=== PATIENT | female | born 1930 | race Caucasian/White ===

== ENCOUNTER 2018-04-23 07:00 | Inpatient (IN) | payer OTHER, MEDICARE ==
[~2018-04-23] VITALS: Ht 154.9 cm; Wt 83.5 kg
[~2018-04-23 07:00] MED LIST: ALENDRONATE SOD70 M2 PO; AUGMENTIN 500-1 EACH PO; CLONIDINE1 EAC1 TOP; COLACE100 M1 PO; DILAUDID2 M1 PO; DILTIAZEM 12HR90 MG PO; DULOXETINE HCL30 MG PO; ELIQUIS2.5 M1 PO; ELIQUIS5 M1 PO; HYDROMORPHONE HC2 M1 PO; LASIX40 M1 PO; LIPITOR20 M2 PO; METOLAZONE2.5 M1 PO; MIRALAX17 G1 PO; PRILOSEC OTC20 M1 PO; PRINIVIL20 M1 PO; TRAMADOL HCL50 M1 PO; VITAMIN D1000 UNIT PO; ZOFRAN ODT4 M1 SL
[2018-05-18] MEDS ORDERED: ASPIRIN81 M4 PO (09:15)
--- NOTE | 2018-05-21 16:45 | Admission Core Measures ---
Acute Coronary Syndrome (CM) ACS Core Measures Acute Coronary Syndrome Diagnosis No Congestive Heart Failure (NEW) CHF Core Measures Congestive Heart Failure Diagnosis No Cerebrovascular Accident CVA Core Measures CVA/TIA Diagnosis No Venous Thromboembolism VTE Core Brian (View Protocol) VTE Risk Factors Surgery No Mechanical VTE Prophylaxis d/t N/A MechProphylax Ordered No VTE Pharm Prophylaxis d/t NA PharmProphylax ordered Problem List As ranked by this Provider includes Assessment & Plan 1. Unilateral primary osteoarthritis, right knee HOME MEDS Home Med List Alendronate Sodium 70 MG TABLET 1 TAB PO QW OSTEOPOROSIS (Reported) Aspirin (Aspirin*) 81 MG TAB.CHEW 1 TAB PO DAILY CARDIAC (Reported) Atorvastatin Calcium (Lipitor) 20 MG TABLET 1 TAB PO DAILY CHOLESTEROL ( Reported) Diltiazem HCl (Diltiazem 12HR ER) 90 MG CAP.ER.12H 2 CAP PO BID HEART/BP ( Reported) Docusate Sodium (Colace) 100 MG CAPSULE 1 CAP PO BID constipation Duloxetine HCl 30 MG CAPSULE.DR 1 TAB PO DAILY MENTAL HEALTH (Reported) Furosemide (Lasix) 40 MG TABLET 1 TAB PO DAILY DIURETIC (Reported) Omeprazole Magnesium (Prilosec Otc) 20 MG TABLET.DR 1 TAB PO DAILY GI ( Reported)
[2018-05-21] MEDS ORDERED: DILAUDID2 M1 PO (16:50)
[2018-05-21] MEDS ORDERED: ELIQUIS2.5 M1 PO (16:50)
[2018-05-21] MEDS ORDERED: MIRALAX17 G1 PO (16:50)
[2018-05-21] MEDS ORDERED: PRILOSEC OTC20 M1 PO (16:50)
[2018-05-21] MEDS ORDERED: COLACE100 M1 PO (16:50)
--- NOTE | 2018-05-21 16:53 | Patient Discharge Instructions ---
Discharge Instructions General Discharge Information You were seen/treated for: Right knee pain related to unilateral primary osteoarthritis You had these procedures: Right total knee replacement Watch for these problems: Increasing pain despite the use of pain medication Increasing redness, warmth or swelling Drainage of any type from incision Inability to bear weight on operative leg Persistent nausea and vomiting Fever greater than 101.5 degrees Call Surgeon to remove: Frank Do not soak the wound: Yes Daily wet to dry dressings: No No bath, but you may shower: Yes Other wound care: Please keep wound clean and dry. No ointments or lotions of any type on or near incision at any time. No exceptions. Your dressing will be changed by your nurse on the second day after your surgery. Daily dry dressing changes are recommended each day thereafter. Do not soak your wound in a bath or pool at any time until otherwise indicated by your surgeon. You may shower, please dry wound immediately after shower with a clean towel. Special Instructions: Constipation: Pain medication can cause constipation. Your surgeon has recommended that you take Colace and miralax each day. You may discontinue this medication if you develop loose stool or diarrhea. If you wish to continue this medication, it is available over the counter. If you are unable to move your bowels after several days, if you are unable to pass gas and are developing bloating, nausea, or vomiting as a result, please contact your doctor. Diet Continue normal diet: Yes Recommended Diet: Regular Activity Full Activity/No Limits: No Activity Self Limited: Yes Acute Coronary Syndrome Inclusion Criteria At DC or during hospital stay patient has or had the following: ACS DIAGNOSIS No Discharge Core Measures Meds if any: Prescribed or Continued at Discharge Meds if any: NOT Prescribed or Continued at Discharge Congestive Heart Failure Inclusion Criteria At DC or during hospital stay patient has or had the following: CHF DIAGNOSIS No Discharge Core Measures Meds if any: Prescribed or Continued at Discharge Meds if any: NOT Prescribed or Continued at Discharge Cerebrovascular accident Inclusion Criteria At DC or during hospital stay patient has or had the following: CVA/TIA Diagnosis No Discharge Core Measures Meds if any: Prescribed or Continued at Discharge Meds if any: NOT Prescribed or Continued at Discharge Venous thromboembolism Inclusion Criteria VTE Diagnosis No VTE Type NONE VTE Confirmed by (Test) NONE Discharge Core Measures - Per Current guidelines, there needs to be overlap - treatment for the first 5 days of Warfarin therapy. - If discharged on Warfarin prior to 5 days of - overlap therapy, the patient will need to be - assessed for post discharge needs including - *Post discharge parental anticoagulation - *Warfarin and/or parental anticoagulation education - *Follow up date to check INR post discharge At least 5 days overlap therapy as Inpatient No Meds if any: Prescribed or Continued at Discharge Note: Overlap Therapy is Warfarin and Anticoagulant Meds if any: NOT Prescribed or Continued at Discharge
--- NOTE | 2018-05-21 16:55 | Surgical Discharge Summary ---
Visit Information Visit Dates Admission Date: 05/21/18 Discharge Date: 05/25/18 History of Present Illness Chief Complaint: Right knee pain related to unilateral primary osteoarthritis Medical History Neurological: dizziness EENT: NONE, allergies Cardiovascular: AFIB, hypertension, hyperlipidemia Respiratory: bronchitis, pneumonia Gastrointestinal: NONE Hepatic: NONE Renal: NONE Musculoskeletal: fracture, osteoporosis Psychiatric: NONE Endocrine: osteoporosis Blood Disorders: NONE Cancer(s): NONE SCHOOL PSYCHOMETRIST/Reproductive: NONE History of MRSA: No History of VRE: No History of CDIFF: No Surgical History Pertinent Surgical History: appendectomy, hip replacement, hysterectomy Psychosocial History Who Do You Live With? Spouse What is Your Primary Language? Mohawk Review of Systems: See H&P Physical Exam: General: Alert, awake, distress Extremities: Right knee with juvencio in place no surrounding edema, erythema, or ecchymosis, generalized edema of upper and lower extremities, no cyanosis or clubbing appreciated, neurovascular intact Hospital Course Course Attending Physician: Keven Ngo MD Primary Care Physician: Kishan Rivera MD Hospital Course: Patient was admitted to the hospital for an elective total joint replacement. The procedure was tolerated well and patient was transferred to a general surgical floor. Diet was advanced and tolerated. The patient was evaluated and treated by physical therapy. At the time of hospital discharge, the vital signs were stable, neurovascular status was intact, and pain was controlled with the use of oral pain medications. Complications: none Allergies: Coded Allergies: codeine (From TYLENOL-CODEINE #3) (UNKNOWN 05/18/18) PER PRE-OP ORDER SHEET FROM [facility]. -CG 04/20/18 oxycodone (UNKNOWN 05/18/18) PER PRE-OP ORDER SHEET FROM [facility]. -CG 05/18/18 wool (UNKNOWN 05/18/18) Significant Procedures: Right Total Knee Arthroplasty Disposition Summary Disposition Principal Diagnosis: Unilateral primary osteoarthritis right knee Additional Diagnosis: None Discharge Disposition: home health services Discharge Instructions General Discharge Information Code Status: Full Code Patient's Diet: Regular, advance as tolerated Patient's Activity: WBAT Follow-Up Instructions/Appts: Follow up with Dr. Ngo in 6 weeks from date of surgery. Please call office to arrange &/or confirm this appointment. Medications at Discharge Discharge Medications: Stop taking the following medications: Aspirin (Aspirin*) 81 MG TAB.CHEW ORAL DAILY Continue taking these medications: Atorvastatin Calcium (Lipitor) 20 MG TABLET 1 Tablet ORAL DAILY Comments: Last Taken: 05/24/18 Time: 4:00 PM Diltiazem HCl (Diltiazem 12HR ER) 90 MG CAP.ER.12H 2 Capsule ORAL TWICE DAILY Comments: Last Taken: 05/25/18 Time: 8:30 AM Furosemide (Lasix) 40 MG TABLET 1 Tablet ORAL DAILY Comments: NOT GIVEN IN HOSPITAL Alendronate Sodium (Alendronate Sodium) 70 MG TABLET 1 Tablet ORAL Once a Week Instructions: in the morning, at least 30 minutes before the first food, beverage, MONDAY Comments: NOT GIVEN IN HOSPITAL Duloxetine HCl (Duloxetine HCl) 30 MG CAPSULE.DR 1 Tablet ORAL DAILY Comments: Last Taken: 05/25/18 Time: 8:30 AM Docusate Sodium (Colace) 100 MG CAPSULE 1 Capsule ORAL TWICE DAILY Qty = 14 Comments: Last Taken: 05/25/18 Time: 8:30 AM This prescription has been renewed Omeprazole Magnesium (Prilosec Otc) 20 MG TABLET.DR 1 Tablet ORAL DAILY Qty = 30 Comments: Last Taken: 05/25/18 Time: 5:30 AM This prescription has been renewed Start taking the following new medications: Acetaminophen (Tylenol) 325 MG TABLET 650 Milligram ORAL EVERY 4 HOURS NEEDED as needed for pain control Days = 10 No Refills Instructions: ok to stagger with tramadol Tramadol HCl (Tramadol HCl) 50 MG TABLET 50 Milligram ORAL Every 6-8 Hours as Needed as needed for pain control Qty = 30 No Refills Instructions: ok to stagger with tylenol Apixaban (Eliquis) 2.5 MG TABLET 1 Tablet ORAL TWICE DAILY Qty = 84 No Refills Comments: Last Taken: 05/25/18 Time: 8:30 AM Polyethylene Glycol 3350 (Miralax) 17 GRAM POWD.PACK 1 Packet ORAL DAILY Qty = 7 No Refills Instructions: dissolve in water, DISCONTINUE USE IF YOU DEVELOP LOOSE STOOL OR DIARRHEA Comments: Last Taken: 05/25/18 Time: 8:30 AM Copies To: Keven Ngo MD
--- NOTE | 2018-05-21 17:12 | PN- Orthopedic ---
Subjective Subjective: 88 y/o female s/p right TKA, comfortable in PACU with vague complaints of chest pressure, She has a history of GERD and did not take her normal morning meds. Sensory is returning to both of her legs. She denies nausea, dizziness or chest pain. No prior history of cardiac events in the past. She has a history of PE in 2016. Last echo was normal. Objective Vital Signs and I&Os VSS afebrile chest- CTA symmetric heart- RRR without MRG Abd -rounded without distention, NT right knee- melissa wraps in place, dressings dry, calves soft beginning to feels sensation but no motor function yest feet warm with good perfusion Assessment/Plan Assessment/Plan 88 y/o female postop right TKR with PMHx sig for AFIB,HTN, GERD, PE with mild chest pressure. EKG showed mild T-wave changes -nonspecific as compared to prior preop EKG anesthesia administered famotidine and will continue to monitor for any further changes prior to admission to the floor. Prior history of PE -ALPS and eduardo OOB-chair -PT WBAT D/C planning for 2 nights Core Measures Venous Thromboembolism VTE Risk Factors Surgery No Mechanical VTE Prophylaxis d/t N/A MechProphylax Ordered No VTE Pharm Prophylaxis d/t NA PharmProphylax ordered
--- NOTE | 2018-05-21 17:47 | Operative Report ---
Operative/Inv Procedure Report Surgery Date: 05/21/18 Name of Procedure: Right total knee replacement Pre-Operative Diagnosis: Primary right knee DJD Post-Operative Diagnosis: Same Estimated Blood Loss: 50ml to 100ml Surgeon/Banquet Prep Cook: Jeni SINGH,Keven Vaughn Anesthesia: block Operative/Procedure Note Note: Description of Procedure: The patient was taken to the operating room and positively identified. After induction of spinal anesthesia and administration of appropriate pre-operative antibiotics, the patient was positioned supine on the operating room table and all bony prominences were well padded. A well-padded pneumatic tourniquet was placed on the right upper thigh. After performing a surgical timeout, the right lower extremity was prepped and draped in the usual sterile fashion. After exsanguination with Esmarch the tourniquet was inflated to 250mm of mercury. A standard medial parapatellar approach was made to the knee. This was carried down through skin and subcutaneous tissue to the level of the fascia. Meticulous hemostasis was maintained with Bovie electrocautery. The extensor mechanism and patellar retinaculum were opened sharply and the patella was everted. The infrapatellar fat was resected in order to improve exposure. Osteophytes were trimmed from the patella and femoral condyles and the patella was re-everted and tucked laterally. A medial release was performed and the cruciate ligaments were resected. The tibia was then subluxed anteriorly. Utilizing the appropriate extra-medullary guide, the proximal tibia was trimmed perpendicular to the long axis of the tibial shaft. Attention was then turned to the femur. After opening the medullary canal, the distal femoral cut was made in 6 degrees of valgus utilizing the appropriate intra-medullary guide. The extension gap was checked and found to be appropriate. The femur was then sized and the remainder of the femoral cuts were made with a size #4 4-in-1 femoral cutting guide. The flexion gap was checked and found to be symmetric and appropriate. The knee was then trialed with a size #4 femoral component, a size #4 tibial component and a size 16 mm polyethylene insert. The patella was trimmed to accept an A 35 patella. This yielded excellent range of motion, stability and patellar tracking. All trial components were removed and the knee was copiously irrigated with sterile saline. All components were cemented into place with Elroy Simplex cement. All the components were of the Elroy Triathlon knee system of the above stated sizes. The knee was again irrigated after cementation. The extensor mechanism and patellar retinaculum were repaired using interrupted #1 vicryl suture. The skin was re-approximated with 2-0 vicryl and closed with juvencio. A sterile dressing was applied, the tourniquet was deflated, the patient was awakened and taken to the recovery room in satisfactory condition.
[2018-05-21 20:15] VITALS: BP 142/78
[2018-05-21 22:43] VITALS: BP 144/78
[2018-05-22] VITALS (7 sets, daily range): BP systolic 100–141; BP diastolic 50–67
--- NOTE | 2018-05-22 08:00 | PN- Orthopedic ---
Subjective Subjective: Patient doing well, no complaints, pain is controlled, voiding, tolerating diet, no fever no flulike illness, no acute events overnight, was nauseous, now resolved. No chest pain no shortness of breath Objective Vital Signs and I&Os Vital Signs Date Time Temp Pulse Resp B/P B/P Pulse O2 O2 Flow FiO2 Mean Ox Delivery Rate 05/22 0552 98.0 55 20 114/60 94 Room Air 05/22 0200 97.6 79 20 107/60 94 Room Air 05/22 0010 97.5 80 20 141/67 95 Room Air 05/21 2243 97.4 76 20 144/78 97 Room Air 05/21 2033 95 Room Air 05/21 2015 97.6 75 20 142/78 95 Room Air Intake & Output 05/22 0805/22 0000 05/21 1600 05/21 0805/21 0000 05/20 1600 Intake Total 840 390 Output Total 400 Balance 840 -10 Intake, IV 600 150 Intake, Oral 240 240 Output, Urine 400 Patient 184 lb Weight Weight Reported by Patient Measurement Method Physical Exam: Well-developed well-nourished no apparent distress. HEENT: Atraumatic, extraocular motion intact Neck: Supple, no lymphadenopathy Respiratory: No respiratory distress Extremities: No edema RIGHT lower extremity dressing in place, dressing clean dry and intact. Mild joint effusion Range of motion is 0-45. Compression wrap in place. ALPS in place Neurovascularly intact distally Bilateral calves are supple, nontender. Neuro: Alert and oriented x3 Psych: Mood affect normal, normal memory normal judgment. Skin: Warm and dry, no rash on exposed skin Current Medications: Current Medications Sig/Kirstin Start time Last Medication Dose Route Stop Time Status Admin Acetaminophen 1,000 MG Q6H 05/22 0400 AC 05/22 IV 05/22 1601 0409 Acetaminophen 1,000 MG Q6 05/21 1800 DC 05/21 IV 05/22 1201 2158 Acetaminophen 0 .STK-MED ONE 05/21 1349 DC PO Acetaminophen 975 MG ONCE 05/21 0000 DC PO 05/21 2359 Apixaban 2.5 MG BID 05/22 0900 AC PO Atorvastatin Calcium 20 MG 1700 05/21 1700 AC 05/21 PO 2158 Cefazolin Sodium 2 GM IQ8 05/22 0000 AC 05/21 N/A 1 UNIT IV 05/22 0829 2335 Cefazolin Sodium 2,000 MG ONCE 05/21 0000 DC IV 05/21 2359 Dextrose/Sodium 1,000 ML .[id number] 05/21 2030 DC 05/22 Chloride IV 0412 Diltiazem HCl 180 MG BID 05/21 2100 AC 05/21 PO 2159 Docusate Sodium 100 MG BID 05/21 2100 AC 05/21 PO 2159 Duloxetine HCl 30 MG DAILY 05/22 0900 AC PO Famotidine 0 .STK-MED ONE 05/21 1640 DC IV Hydromorphone HCl 2 MG Q4P PRN 05/21 2030 AC PO Hydromorphone HCl 4 MG Q4P PRN 05/21 2030 AC 05/21 PO 2159 Midazolam HCl 0 .STK-MED ONE 05/21 1416 DC .ROUTE Morphine Sulfate 2 MG Q2P PRN 05/21 2030 AC IV Omeprazole 40 MG DAILY AC 05/22 0700 AC 05/22 PO 0521 Ondansetron HCl 4 MG Q6P PRN 05/21 2030 AC IV Ondansetron HCl 0 .STK-MED ONE 05/21 1723 DC .ROUTE Oxycodone HCl 0 .STK-MED ONE 05/21 1350 DC PO Oxycodone HCl 10 MG ONCE 05/21 0000 DC PO 05/21 2359 Polyethylene Glycol 17 GM DAILY 05/22 09 AC PO Promethazine HCl 12.5 MG Q6P PRN 05/21 2030 AC IV 05/28 1644 Assessment/Plan Assessment/Plan Postop day #1 status post right total knee arthroplasty Perioperative antibiotics. Pain medication as needed. Out of bed Physical therapy, weightbearing as tolerated DC IV fluids Regular diet Follow a.m. labs Eliquis for DVT prophylaxis (hx paf and PE) ALPS for DVT prophylaxis Regular home meds Dressing change postop day 2 Anticipate discharge home in 1-2 days with VNA services Core Measures Venous Thromboembolism VTE Risk Factors Surgery No Mechanical VTE Prophylaxis d/t N/A MechProphylax Ordered No VTE Pharm Prophylaxis d/t NA PharmProphylax ordered
[2018-05-22 09:18] LABS: ABSOLUTE BASOPHIL COUNT 0 /CUMM (0.0-0.2); ABSOLUTE EOSINOPHIL COUNT 0 /CUMM (0.0-0.7); ABSOLUTE GRANULOCYTE CT 7.7 /CUMM (1.4-6.5); ABSOLUTE MONOCYTE COUNT 0.5 /CUMM (0.10-0.60); BASOPHIL % 0.1 % (0.0-2.0); EOSINOPHIL % 0.1 % (0-5); GRANULOCYTE % 83.2 % (42.2-75.2); HEMATOCRIT 30.1 % (37-47); MEAN CORPUSCULAR HGB 32.7 PG (27.0-31.0); MEAN CORPUSCULAR HGB CONC 34.7 G/DL (33.0-37.0); MEAN CORPUSCULAR VOLUME 94.3 FL (81.0-99.0); MEAN PLATELET VOLUME 7.8 FL (7.4-10.4); PLATELET COUNT 195 /CUMM (130-400); RBC DISTRIBUTION WIDTH 12.1 % (11.5-14.5); WHITE BLOOD CELL COUNT 9.3 /CUMM (4.8-10.8)
--- NOTE | 2018-05-23 06:31 | PN- Orthopedic ---
Subjective Subjective: POD#2 S/P LEFT TKA NAUSEA AND SOME EMESIS OVERNIGHT CURRENTLY DENEIS CP, SOB, OR NAUSEA NOW ALSO C/O EPIGASTRIC FULLNESS BUT NO ABDOMINAL PAIN Objective Vital Signs and I&Os Vital Signs Date Time Temp Pulse Resp B/P B/P Pulse O2 O2 Flow FiO2 Mean Ox Delivery Rate 05/224 97.5 62 18 100/50 95 Room Air 05/22 2049 62 100/50 05/22 1839 96.4 57 18 107/50 93 Room Air 05/22 1505 64 20 122/64 97 Room Air 05/22 1005 98.0 58 20 106/58 97 Room Air 05/22 0849 110/50 Intake & Output 05/23 0000 05/22 1600 05/22 0000 05/21 1600 Intake Total 900 840 390 Output Total 200 530 400 Balance -200 370 840 -10 Intake, IV 600 600 150 Intake, Oral 300 240 240 Output, 80 Emesis Output, Urine 200 450 400 Patient 184 lb Weight Weight Reported by Patient Measurement Method Physical Exam: CV: RRR LUNGS: CLEAR ABD: SOFT, +BS NT/ND EXT: DRSG CHANGE, WOUND C/D/I NO CALF TENDERNESS BILAT DISTAL CMS INTACT Assessment/Plan Assessment/Plan ORTHO STABLE NAUSEA OVERNIGHT NONE NOW PLAN CBC/BEP ORDERED CONT IVF OOB WITH PT/STAIRS CONT CURRENT MEDICAL MANAGEMENT POSSIBLE ABD IMAGING IF ABDOMINAL COMPLAINTS WORSEN HOME D/C PLANNING Core Measures Venous Thromboembolism VTE Risk Factors Surgery No Mechanical VTE Prophylaxis d/t N/A MechProphylax Ordered No VTE Pharm Prophylaxis d/t NA PharmProphylax ordered
[2018-05-23 06:33] VITALS: BP 132/60
[2018-05-23 07:45] LABS: ABSOLUTE BASOPHIL COUNT 0 /CUMM (0.0-0.2); ABSOLUTE EOSINOPHIL COUNT 0 /CUMM (0.0-0.7); ABSOLUTE GRANULOCYTE CT 6.9 /CUMM (1.4-6.5); ABSOLUTE LYMPH COUNT 0.8 /CUMM (1.2-3.4); ABSOLUTE MONOCYTE COUNT 0.6 /CUMM (0.10-0.60); BASOPHIL % 0.2 % (0.0-2.0); EOSINOPHIL % 0.4 % (0-5); GRANULOCYTE % 82.4 % (42.2-75.2); HEMATOCRIT 30.5 % (37-47); MEAN CORPUSCULAR HGB 32.9 PG (27.0-31.0); MEAN CORPUSCULAR HGB CONC 34.4 G/DL (33.0-37.0); MEAN CORPUSCULAR VOLUME 95.7 FL (81.0-99.0); MEAN PLATELET VOLUME 7.3 FL (7.4-10.4); PLATELET COUNT 187 /CUMM (130-400); RBC DISTRIBUTION WIDTH 12.7 % (11.5-14.5); RED BLOOD CELL CT 3.19 /CUMM (4.20-5.40); WHITE BLOOD CELL COUNT 8.3 /CUMM (4.8-10.8)
[2018-05-23 14:15] VITALS: BP 122/58
[2018-05-23 21:31] VITALS: BP 120/50
[2018-05-24 06:39] VITALS: BP 100/52
--- NOTE | 2018-05-24 07:30 | PN- Orthopedic ---
Subjective Subjective: Patient doing fairly well this morning. She works with [employer] and has been ambulating with a walker. Reports fair pain control, having quite a bit of pain with movement. She reports no appetite but feels like she is keeping up with her fluid intake. She denies any other issues or complaints. Objective Vital Signs and I&Os Vital Signs Date Time Temp Pulse Resp B/P B/P Pulse O2 O2 Flow FiO2 Mean Ox Delivery Rate 05/24 0639 97.4 80 18 100/52 88 05/23 2254 78 120/50 05/23 2131 97.9 76 18 120/50 94 Room Air 05/23 1415 97.4 81 18 122/58 94 Room Air 05/23 0806 120/50 05/23 0800 97 Room Air Intake & Output 05/24 0000 05/23 1600 05/23 0000 05/22 1600 Intake Total 240 1400 1080 900 Output Total 800 200 530 Balance 005 012 4855 -200 370 Intake, IV 600 600 600 Intake, Oral 240 800 480 300 Number 0 Bowel Movements Output, 80 Emesis Output, Urine 800 200 450 Physical Exam: General: Alert, awake, distress Extremities: Right knee with juvencio in place no surrounding edema, erythema, or ecchymosis, generalized edema of upper and lower extremities, no cyanosis or clubbing appreciated, neurovascular intact Current Medications: Current Medications Sig/Kirstin Start time Last Medication Dose Route Stop Time Status Admin Apixaban 2.5 MG BID 05/22 09 AC 05/23 PO 2254 Atorvastatin Calcium 20 MG 1700 05/21 1700 05/23 PO 1802 Dextrose/Sodium 1,000 ML Q13H 05/22 1945 05/23 Chloride IV 2254 Diltiazem HCl 180 MG BID 05/21 2100 AC 05/23 PO 2254 Docusate Sodium 100 MG BID 05/21 2100 05/23 PO 2254 Duloxetine HCl 30 MG DAILY 05/22 0905/23 PO 0807 Hydromorphone HCl 2 MG Q4P PRN 05/21 2030 AC 05/23 PO 1111 Hydromorphone HCl 4 MG Q4P PRN 05/21 2030 AC 05/22 PO 1419 Morphine Sulfate 2 MG Q2P PRN 05/21 2030 AC IV Omeprazole 40 MG DAILY AC 05/22 0705/24 PO 0601 Ondansetron HCl 4 MG Q6P PRN 05/21 2030 AC 05/22 IV 1419 Polyethylene Glycol 17 GM DAILY 05/22 0900 AC PO Promethazine HCl 12.5 MG Q6P PRN 05/21 2030 AC 05/22 IV 05/28 1644 1545 Results Last 48 Hours of Labs: Laboratory Tests 05/23 05/22 0718 0755 Chemistry Sodium (137 - 145 mmol/L) 135 L 137 Potassium (3.5 - 5.1 mmol/L) 3.7 3.9 Chloride (98 - 107 mmol/L) 106 107 Carbon Dioxide (22 - 30 mmol/L) 25 23 Anion Gap (5 - 16) 4 L 7 BUN (7 - 17 mg/dL) 11 14 Creatinine (0.5 - 1.0 mg/dL) 0.5 0.7 Estimated GFR (>60 ml/min) > 60 > 60 BUN/Creatinine Ratio (7 - 25 %) 22.0 20.0 Hematology CBC w Diff NO MAN DIFF REQ NO MAN DIFF REQ WBC (4.8 - 10.8 /CUMM) 8.3 9.3 RBC (4.20 - 5.40 /CUMM) 3.19 L 3.20 L Hgb (12.0 - 16.0 G/DL) 10.5 L 10.4 L Hct (37 - 47 %) 30.5 L 30.1 L MCV (81.0 - 99.0 FL) 95.7 94.3 MCH (27.0 - 31.0 PG) 32.9 H 32.7 H MCHC (33.0 - 37.0 G/DL) 34.4 34.7 RDW (11.5 - 14.5 %) 12.7 12.1 Plt Count (130 - 400 /CUMM) 187 195 MPV (7.4 - 10.4 FL) 7.3 L 7.8 Gran % (42.2 - 75.2 %) 82.4 H 83.2 H Lymphocytes % (20.5 - 51.1 %) 9.4 L 10.7 L Monocytes % (1.7 - 9.3 %) 7.6 5.9 Eosinophils % (0 - 5 %) 0.4 0.1 Basophils % (0.0 - 2.0 %) 0.2 0.1 Absolute Granulocytes (1.4 - 6.5 /CUMM) 6.9 H 7.7 H Absolute Lymphocytes (1.2 - 3.4 /CUMM) 0.8 L 1.0 L Absolute Monocytes (0.10 - 0.60 /CUMM) 0.6 0.5 Absolute Eosinophils (0.0 - 0.7 /CUMM) 0 0 Absolute Basophils (0.0 - 0.2 /CUMM) 0 0 Assessment/Plan Assessment/Plan Postop day #3 status post right total knee arthroplasty Perioperative antibiotics completed. Pain medication as needed. Out of bed Physical therapy, weightbearing as tolerated Regular diet Eliquis for DVT prophylaxis (hx paf and PE) ALPS for DVT prophylaxis Regular home meds Anticipate discharge home either today or tomorrow with VNA services Problem List: 1. Unilateral primary osteoarthritis, right knee 2. Status post total hip replacement, right Core Measures Venous Thromboembolism VTE Risk Factors Surgery No Mechanical VTE Prophylaxis d/t N/A MechProphylax Ordered No VTE Pharm Prophylaxis d/t NA PharmProphylax ordered
[2018-05-24 08:30] VITALS: BP 110/58
[2018-05-24 14:40] VITALS: BP 123/53
[2018-05-24 21:19] VITALS: BP 136/71
[2018-05-25 05:51] VITALS: BP 118/52
--- NOTE | 2018-05-25 07:46 | PN- General Surgery ---
See Addendum Subjective Subjective: Complaints from the pateint at the present time include a sensation that she is falling from her bed, as well as the realization that she has awoken speaking to herself. She is expressing concern that it is related to her pain regimen. She denies signficant pain at the present moment and is requesting to forego future pain medication administration. She denies chest pain, shortness of breath and difficulty breathing. She had postop nausea and vomitting but states that over the past one day the sensation has resolved, she tolerated solid food for dinner last night. She has not had any difficulty voiding. She has ambulated with PT and with nursing but fatigues easily. She is eager for discharge to home versus short term rehabilition, as of right now she has not cleared PT for home dc. Objective Vital Signs and I&Os Vital Signs Date Time Temp Pulse Resp B/P B/P Pulse O2 O2 Flow FiO2 Mean Ox Delivery Rate 05/25 0551 98.4 74 18 118/52 93 05/25 0000 Room Air 05/24 2119 98.4 84 18 136/71 97 Room Air 05/24 2020 84 136/71 05/24 1440 98.0 72 18 123/53 95 Room Air 05/24 0851 74 110/58 05/24 0830 74 18 110/58 96 Room Air Room Air 05/24 0800 96 Room Air 05/24 0750 18 92 Room Air Room Air Intake & Output 05/25 0800 05/25 0000 05/24 1600 05/24 0800 05/24 0000 05/23 1600 Intake Total 490 970 438 242 9342 Output Total 500 300 800 Balance -10 670 800 240 600 Intake, IV 10 10 600 Intake, Oral 480 960 800 240 800 Number 0 0 Bowel Movements Output, Urine 500 300 800 Physical Exam: General: Alert and oriented x3, no acute distress Cardiac: RRR, s1s2 Pulm: C T A bilaterally, non-labored respiratory effort Abd: Soft, non-tender, non-distended Extremities: Moves all extremities, distal sensation grossly intact. Skin warm and well perfused. Knee in full extension, juvencio intact, skin edges well approximated with no surrounding erythema and no drainage. Bilateral calves soft and non-tender. Assessment/Plan Assessment/Plan This is an 88 year old female, POD 4, s/p R TKA. -DC dilaudid, add po tylenol as well as po tramadol -OOB, WBAT -Appreciate PT recommendations re: discharge planning home vs str (patient prefers home) -Continue diet as tolerated, po intake encouraged -Continue eliquis for dvt ppx Will discuss plan of care with Dr. Ngo and case management Core Measures Venous Thromboembolism VTE Risk Factors Surgery No Mechanical VTE Prophylaxis d/t N/A MechProphylax Ordered No VTE Pharm Prophylaxis d/t NA PharmProphylax ordered
--- NOTE | 2018-05-25 07:47 | PN- Orthopedic ---
Surgical Brief Attending Note Brief Attending Note: see general surgery progress note dated today for complete evaluation/assessment and plan.
[2018-05-25 08:29] VITALS: BP 118/52
[2018-05-25] MEDS ORDERED: TRAMADOL HCL50 M1 PO (10:26)
[2018-05-25] MEDS ORDERED: TYLENOL325 M1 PO (10:26)
== END 2018-05-25 13:43 | disposition home health service (06) | DRG 470 ==
LOC: SDA 05-21 01:16 → ENRESERV 05-21 17:51 → ENTRNSPT 05-21 19:29 → EDTRNSPT 05-21 19:44 → EDTRNSPTSTS 05-21 19:44 → 2NB 05-21 19:52 → CMPTRNSPT 05-21 19:53 → ENPENDDIS 05-25 10:41 → ENTRNSPT 05-25 13:32 → EDTRNSPTSTS 05-25 13:36 → EDTRNSPT 05-25 13:36 → 2NB 05-25 13:43 → CMPTRNSPT 05-25 13:54
PROVIDERS: Nurse Practitioner; Physician Assistant
PROC: 0SRC069 Replacement of Right Knee Joint with Oxidized Zirconium on Polyethylene Synthetic Substitute, Cemented, Open Approach (ICD-10-PCS; principal; 2018-05-21)
PROC: 3E0T3BZ Introduction of Anesthetic Agent into Peripheral Nerves and Plexi, Percutaneous Approach (ICD-10-PCS; 2018-05-21)
DX: M17.11 Unilateral primary osteoarthritis, right knee (principal); I10 Essential (primary) hypertension; I48.0 Paroxysmal atrial fibrillation; K21.9 Gastro-esophageal reflux disease without esophagitis; Z86.711 Personal history of pulmonary embolism; Z96.643 Presence of artificial hip joint, bilateral; Z79.01 Long term (current) use of anticoagulants; Z88.5 Allergy status to narcotic agent; Z90.49 Acquired absence of other specified parts of digestive tract; Z90.710 Acquired absence of both cervix and uterus
CPT/HCPCS: 2NBP; 36592; 82436; 93005; 93010; 97110-GO; 97116-GO; 97161-GP; 97530-GO; C1713; C9290; J0131; J0690; J2405; J2550; J7042